=== PATIENT | female | born 1945 | race Caucasian/White ===

== ENCOUNTER 2020-12-12 09:58 | Inpatient (IN) | payer MEDICARE, BC ==
[2020-12-12] VITALS (13 sets, daily range): BP systolic 125–170; BP diastolic 37–97
[~2020-12-12] VITALS: Ht 160 cm; Wt 58.6 kg
[2020-12-12 10:55] LABS: HEMATOCRIT 23.6 % (37.0-47.0); MEAN CELL VOLUME 77.4 fl (81.0-99.0); MEAN CORPUSCULAR HGB CONC 27.1 g/dl (33.0-37.0); MEAN PLATELET VOLUME 9.8 fl (9.6-12.3); NUCLEATED RED BLOOD CELL 0.1 10*3/uL (0.0-0.0); NUCLEATED RED BLOOD CELL 1.2 % (0.0-0.0); PLATELET COUNT AUTOMATED 152 10*3/uL (130-400); RED BLOOD COUNT 3.05 10*6/uL (4.10-5.10); RED CELL DISTRI WIDTH 22.4 % (0-14.5); WHITE BLOOD COUNT 5.9 10*3/uL (4.8-10.8)
[2020-12-12 11:05] LABS: ACT PARTIAL THROMBO TIME 28.7 SECONDS (20.0-32.1); INTERNATIONAL NORM RATIO 1.4 (2.0-3.5)
[2020-12-12 11:06] LABS: ABG BASE EXCESS -0.3 mmol/L (-2.0-2.0); ARTERIAL BLOOD GAS PH 7.483 (7.35-7.45); ARTERIAL BLOOD GAS PO2 131.6 (80-90)
[2020-12-12 11:11] LABS: ALBUMIN 2.6 gm/dl (3.1-4.5); ALKALINE PHOSPHATASE 102 U/L (45-117); BUN 18 mg/dl (7-24); CHLORIDE 107 mmol/L (98-107); CPK 218 U/L (26-192); CREATININE 0.88 mg/dL (0.55-1.02); LDH 375 U/L (84-246); POTASSIUM 3.1 mmol/L (3.5-5.1); SGOT/AST 28 IU/L (3-35); SGPT/ALT 38 U/L (12-78); SODIUM 141 mmol/L (136-145); TOTAL PROTEIN 6.2 gm/dL (6.4-8.2)
[2020-12-12 11:13] LABS: TROPONIN I 0.071 ng/ml (<0.045)
[2020-12-12 11:27] LABS: ATYPICAL LYMPHS 1 % (0-0); MICROCYTOSIS SLIGHT; OVALOCYTES FEW; PLATELET SUFFICIENCY NORMAL (NORMAL); POLYCHROMASIA SLIGHT; TARGET CELLS FEW; TOTAL CELLS COUNTED 100 #CELLS
[2020-12-12 15:09] LABS: IRON 13 ug/dL (50-170); TOTAL IRON BINDING CAPACITY 431 ug/dl (250-450)
[2020-12-12 21:30] LABS: HEMATOCRIT 24.3 % (37.0-47.0)
[2020-12-13] VITALS (15 sets, daily range): BP systolic 126–146; BP diastolic 60–98
[2020-12-13 08:13] LABS: HEMATOCRIT 32.7 % (37.0-47.0); MEAN CELL VOLUME 77.7 fl (81.0-99.0); MEAN CORPUSCULAR HGB 23.8 pg (27.0-31.0); MEAN CORPUSCULAR HGB CONC 30.6 g/dl (33.0-37.0); MEAN PLATELET VOLUME 10.4 fl (9.6-12.3); NUCLEATED RED BLOOD CELL 0.1 10*3/uL (0.0-0.0); NUCLEATED RED BLOOD CELL 1.5 % (0.0-0.0); PLATELET COUNT AUTOMATED 138 10*3/uL (130-400); RED BLOOD COUNT 4.21 10*6/uL (4.10-5.10); RED CELL DISTRI WIDTH 20.5 % (0-14.5); WHITE BLOOD COUNT 7.8 10*3/uL (4.8-10.8)
[2020-12-13 08:37] LABS: TOTAL CELLS COUNTED 100 #CELLS
[2020-12-13 08:38] LABS: BURR CELLS FEW; MICROCYTOSIS SLIGHT; OVALOCYTES FEW; PLATELET SUFFICIENCY NORMAL (NORMAL); POLYCHROMASIA SLIGHT; SCHISTOCYTES FEW; TARGET CELLS FEW
[2020-12-13 08:42] LABS: BUN 20 mg/dl (7-24); CHLORIDE 107 mmol/L (98-107); CREATININE 0.84 mg/dL (0.55-1.02); POTASSIUM 3.3 mmol/L (3.5-5.1); SODIUM 140 mmol/L (136-145)
[2020-12-14] VITALS: BP 130/74
[2020-12-14 06:19] LABS: HEMATOCRIT 32.4 % (37.0-47.0); LYMPH # 0.5 10*3/uL (1.3-4.4); LYMPH % 6.9 % (27.0-41.0); MEAN CELL VOLUME 79.2 fl (81.0-99.0); MEAN CORPUSCULAR HGB 23.2 pg (27.0-31.0); MEAN CORPUSCULAR HGB CONC 29.3 g/dl (33.0-37.0); MEAN PLATELET VOLUME 10.9 fl (9.6-12.3); MONO # 0.6 10*3/uL (0.1-1.0); MONO % 7.3 % (3.0-9.0); NEUT # 6.6 10*3/uL (2.3-7.9); NEUT % 85.3 % (47.0-73.0); NUCLEATED RED BLOOD CELL 0.1 10*3/uL (0.0-0.0); NUCLEATED RED BLOOD CELL 1.8 % (0.0-0.0); PLATELET COUNT AUTOMATED 109 10*3/uL (130-400); RED BLOOD COUNT 4.09 10*6/uL (4.10-5.10); RED CELL DISTRI WIDTH 21.1 % (0-14.5); WHITE BLOOD COUNT 7.7 10*3/uL (4.8-10.8)
[2020-12-14 06:44] LABS: BUN 21 mg/dl (7-24); CHLORIDE 104 mmol/L (98-107); CREATININE 0.74 mg/dL (0.55-1.02); POTASSIUM 3.3 mmol/L (3.5-5.1); SODIUM 141 mmol/L (136-145)
[2020-12-14 07:37] LABS: SCHISTOCYTES FEW; TOTAL CELLS COUNTED 100 #CELLS
[2020-12-14 07:38] LABS: BURR CELLS MODERATE; PLATELET SUFFICIENCY LOW (NORMAL); SPHEROCYTES FEW
[2020-12-14 08:00] VITALS: BP 125/79
[2020-12-14 12:00] VITALS: BP 110/57
[2020-12-14 16:00] VITALS: BP 108/71
[2020-12-14 20:00] VITALS: BP 112/63
[2020-12-15] VITALS: BP 118/75
[2020-12-15 08:00] VITALS: BP 119/73
[2020-12-15 11:01] LABS: HEMATOCRIT 32.2 % (37.0-47.0); MEAN CELL VOLUME 78.7 fl (81.0-99.0); MEAN CORPUSCULAR HGB 23.5 pg (27.0-31.0); MEAN CORPUSCULAR HGB CONC 29.8 g/dl (33.0-37.0); MEAN PLATELET VOLUME 10.6 fl (9.6-12.3); NUCLEATED RED BLOOD CELL 0.2 10*3/uL (0.0-0.0); NUCLEATED RED BLOOD CELL 2.4 % (0.0-0.0); PLATELET COUNT AUTOMATED 111 10*3/uL (130-400); RED BLOOD COUNT 4.09 10*6/uL (4.10-5.10); WHITE BLOOD COUNT 9.3 10*3/uL (4.8-10.8)
[2020-12-15 11:13] LABS: ACT PARTIAL THROMBO TIME 34.9 SECONDS (20.0-32.1); INTERNATIONAL NORM RATIO 1.2 (2.0-3.5)
[2020-12-15 11:25] LABS: OVALOCYTES MODERATE; PLATELET SUFFICIENCY LOW (NORMAL); SPHEROCYTES FEW; TOTAL CELLS COUNTED 100 #CELLS
[2020-12-15 11:26] LABS: ACANTHOCYTES MODERATE
[2020-12-15 11:27] LABS: SCHISTOCYTES FEW; TARGET CELLS FEW
[2020-12-15 11:28] LABS: ALBUMIN 2.7 gm/dl (3.1-4.5); ALKALINE PHOSPHATASE 95 U/L (45-117); BUN 20 mg/dl (7-24); CHLORIDE 101 mmol/L (98-107); CREATININE 0.82 mg/dL (0.55-1.02); SGOT/AST 26 IU/L (3-35); SGPT/ALT 34 U/L (12-78); SODIUM 139 mmol/L (136-145); TOTAL PROTEIN 6.2 gm/dL (6.4-8.2)
[2020-12-15 12:00] VITALS: BP 104/60
[2020-12-15 16:00] VITALS: BP 114/67
[2020-12-15 20:00] VITALS: BP 122/69
[2020-12-16] VITALS (8 sets, daily range): BP systolic 100–150; BP diastolic 48–89
[2020-12-17] VITALS: BP 106/60
[2020-12-17 06:22] LABS: BUN 17 mg/dl (7-24); CHLORIDE 100 mmol/L (98-107); CREATININE 0.73 mg/dL (0.55-1.02); POTASSIUM 3.4 mmol/L (3.5-5.1); SODIUM 136 mmol/L (136-145)
[2020-12-17 07:06] LABS: BASO % 0.1 % (0.0-1.0); EOS # 0.1 10*3/uL (0.0-0.4); EOS % 0.6 % (1.0-4.0); HEMATOCRIT 30.8 % (37.0-47.0); LYMPH # 0.8 10*3/uL (1.3-4.4); LYMPH % 9.7 % (27.0-41.0); MEAN CELL VOLUME 81.1 fl (81.0-99.0); MEAN CORPUSCULAR HGB 23.7 pg (27.0-31.0); MEAN CORPUSCULAR HGB CONC 29.2 g/dl (33.0-37.0); MEAN PLATELET VOLUME 10.4 fl (9.6-12.3); MONO # 0.7 10*3/uL (0.1-1.0); MONO % 8.3 % (3.0-9.0); NEUT # 6.4 10*3/uL (2.3-7.9); NEUT % 80.7 % (47.0-73.0); NUCLEATED RED BLOOD CELL 0.4 % (0.0-0.0); PLATELET COUNT AUTOMATED 106 10*3/uL (130-400); RED CELL DISTRI WIDTH 24.4 % (0-14.5); WHITE BLOOD COUNT 7.9 10*3/uL (4.8-10.8)
[2020-12-17 12:00] VITALS: BP 116/57
[2020-12-17 16:00] VITALS: BP 102/61
[2020-12-17 20:00] VITALS: BP 128/66
[2020-12-18] VITALS: BP 115/73
[2020-12-18 06:10] LABS: BUN 19 mg/dl (7-24); CHLORIDE 101 mmol/L (98-107); CREATININE 0.69 mg/dL (0.55-1.02); POTASSIUM 3.9 mmol/L (3.5-5.1); SODIUM 136 mmol/L (136-145)
[2020-12-18 08:00] VITALS: BP 143/81
[2020-12-18 12:00] VITALS: BP 111/63
== END 2020-12-18 18:29 | disposition short-term general hospital (02) | DRG 383 ==
LOC: ED 09:58 → EDHOLD 14:09 → 4E 14:09
PROVIDERS: Emergency Medicine; Internal Medicine; Internal Medicine Cardiovascular Disease; ADMIT Internal Medicine; ATTEND Internal Medicine
PROC: 0DB68ZX Excision of Stomach, Via Natural or Artificial Opening Endoscopic, Diagnostic (ICD-10-PCS; principal; 2020-12-12)
PROC: 30233N1 Transfusion of Nonautologous Red Blood Cells into Peripheral Vein, Percutaneous Approach (ICD-10-PCS; 2020-12-12)
PROC: 02HV33Z Insertion of Infusion Device into Superior Vena Cava, Percutaneous Approach (ICD-10-PCS; 2020-12-13)
DX: K26.9 Duodenal ulcer, unspecified as acute or chronic, without hemorrhage or perforation (principal); I50.43 Acute on chronic combined systolic (congestive) and diastolic (congestive) heart failure; I24.8 Other forms of acute ischemic heart disease; E44.0 Moderate protein-calorie malnutrition; I47.2 Ventricular tachycardia; K29.70 Gastritis, unspecified, without bleeding; D53.9 Nutritional anemia, unspecified; Z20.822 Contact with and (suspected) exposure to COVID-19; N83.209 Unspecified ovarian cyst, unspecified side; I25.10 Atherosclerotic heart disease of native coronary artery without angina pectoris; N83.9 Noninflammatory disorder of ovary, fallopian tube and broad ligament, unspecified; E77.8 Other disorders of glycoprotein metabolism; R60.1 Generalized edema; E87.6 Hypokalemia; I08.1 Rheumatic disorders of both mitral and tricuspid valves; E83.42 Hypomagnesemia; D50.0 Iron deficiency anemia secondary to blood loss (chronic); E88.09 Other disorders of plasma-protein metabolism, not elsewhere classified; F51.01 Primary insomnia; Z86.16 Personal history of COVID-19; Z83.6 Family history of other diseases of the respiratory system; Z88.0 Allergy status to penicillin; Z88.8 Allergy status to other drugs, medicaments and biological substances; Z82.49 Family history of ischemic heart disease and other diseases of the circulatory system; Z68.26 Body mass index [BMI] 26.0-26.9, adult